=== PATIENT | female | born 1955 | race Caucasian/White ===

== ENCOUNTER → 2019-05-07 12:25 | Emergency (ER) | payer MEDICARE ==
[~2019-05-07 12:25] MED LIST: Dexamethasone IV* 4 MG/ML 1 ML (4 MG) IV SLOW PU ONE; Methocarbamol TAB* 500 MG PO ONE; Potassium Chlor TAB* 20 MEQ TAB.ER PO ONE
--- NOTE | 2019-05-07 12:43 | ED ---
Back Pain - HPI Summary HPI Summary: Patient is a 63 y/o F presenting to ED with complaints of back pain and urinary/ fecal incontinence. She states that Sx have been intermittent over the past few years but have exacerbated over the past few weeks. She endorses numbness and weakness of legs with difficulty of ambulation as well. Patient denies fevers and chills. Per triage, "Pt was seen by Dr. Killian and was told to come to the ED for emergent spinal surgery". Patient states she has never seen a neurosurgeon. No Hx of diabetes, patient endorses Hx of HLD and HTN. On triage, pain is rated 7/10, certain positions aggravate Sx. Home medications and allergies are reviewed. - History of Current Complaint Chief Complaint: EDBackInjuryPain Stated Complaint: MRI OF HER BACK PER PT Time Seen by Provider: 05/07/19 12:38 Hx Obtained From: Patient Onset/Duration: Lasting Weeks, Still Present Onset/Duration: Started Weeks Ago, Still Present Timing: Constant, Lasting Weeks Back Pain Location: Is Discrete @ - back Severity Currently: Severe Pain Intensity: 7 Pain Scale Used: 0-10 Numeric Aggravating Symptom(s): Other - position Alleviating Symptom(s): Nothing Associated Signs And Symptoms: Positive: Weakness - BLE, Numbness - BLE, Bladder Incontinence, Bowel Incontinence, Other - negative - chills. Negative: Fever - Allergies/Home Medications Allergies/Adverse Reactions: Allergies Allergy/AdvReac Type Severity Reaction Status Date / Time latex Allergy Rash Verified 05/07/19 12:33 Home Medications: Home Medications Aspirin EC TAB* [Ecotrin EC Low Dose 81 MG*] 81 mg PO DAILY 05/07/19 [History Confirmed 05/07/19] Atorvastatin* [Lipitor 20 MG*] 20 mg PO DAILY 05/07/19 [History Confirmed ] Bisoprolol TAB* [Zebeta TAB*] 5 mg PO DAILY 05/07/19 [History Confirmed 05/07/19 ] Calcium Carbonate/Vitamin D3 [Calcium 600 + Vit D Tablet] 1 tab PO DAILY [History Confirmed 05/07/19] Escitalopram * [Lexapro *] 40 mg PO DAILY 05/07/19 [History Confirmed 05/07/19] Lamotrigine XR (NF) [Lamictal XR (NF)] 200 mg PO BID 05/07/19 [History Confirmed 05/07/19] Meloxicam(NF) [Mobic(NF)] 7.5 mg PO BID 05/07/19 [History Confirmed 05/07/19] Multivitamins/Minerals TAB* [Theragran/minerals TAB*] 1 tab PO DAILY 05/07/19 [ History Confirmed 05/07/19] Spironolactone [Aldactone 50 MG-] 50 mg PO DAILY 05/07/19 [History Confirmed 11/13] amLODIPine TAB* [Norvasc 5 mg TAB*] 5 mg PO EVERY OTHER DAY 05/07/19 [History Confirmed 05/07/19] PMH/Surg Hx/FS Hx/Imm Hx Cardiovascular History: Reports: Hx Hypertension GI History: Reports: Hx Irritable Bowel Musculoskeletal History: Reports: Hx Arthritis - rheumatoid Sensory History: Reports: Hx Contacts or Glasses Opthamlomology History: Reports: Hx Contacts or Glasses Neurological History: Reports: Other Neuro Impairments/Disorders - had grand mal seizure in 2003 but none since - Surgical History Surgery Procedure, Year, and Place: tonsillectomy, hysterectomy,total right and left knee replacements,quadriceps tendon and achilles left leg in 2011 & 2012; Bilateral Wrist Surgery 2017 [facility] by Dr. Gutierrez ([place]arpal Tunnel and Gangl[place]) Infectious Disease History: No Infectious Disease History: Denies: Traveled Outside the [place] in Last 30 Days - Family History Known Family History: Positive: Cardiac Disease, Hypertension, Diabetes, Renal Disease - Social History Alcohol Use: None Substance Use Type: Reports: None Smoking Status (MU): Current Every Day Smoker Type: Cigarettes Amount Used/How Often: 2-5 cigarettes/day Have You Smoked in the Last Year: Yes Review of Systems Negative: Fever, Chills Positive: incontinence Musculoskeletal: Other - POSITIVE - BACK PAIN Positive: Weakness - BLE , Numbness - BLE All Other Systems Reviewed And Are Negative: Yes Physical Exam - Summary Physical Exam Summary: VITAL SIGNS: Reviewed. GENERAL: Patient is a well-developed and nourished female who is lying comfortable in the stretcher. Patient is not in any acute respiratory distress. Incontinent of urine and feces. Lumbar spine tenderness is noted. HEAD AND FACE: No signs of trauma. No ecchymosis, hematomas or skull depressions. No sinus tenderness. EYES: PERRLA, EOMI x 2, No injected conjunctiva, no nystagmus. EARS: Hearing grossly intact. Ear canals and tympanic membranes are within normal limits. MOUTH: Oropharynx within normal limits. NECK: Supple, trachea is midline, no adenopathy, no JVD, no carotid bruit, no c- spine tenderness, neck with full ROM. CHEST: Symmetric, no tenderness at palpation LUNGS: Clear to auscultation bilaterally. No wheezing or crackles. CVS: Regular rate and rhythm, S1 and S2 present, no murmurs or gallops appreciated. ABDOMEN: Soft, non-tender. No signs of distention. No rebound no guarding, and no masses palpated. Bowel sounds are normal. RECTAL EXAM: Done in presence of female nurse. Decreased sphincter tone is noted. EXTREMITIES: No edema, no cyanosis or clubbing. Hypo-reflexia, decreased sensation at legs. NEURO: Alert and oriented x 3. Speech is normal and follows commands. Hypo- reflexia, decreased sensation and weakness of legs. SKIN: Dry and warm. Triage Information Reviewed: Yes Vital Signs On Initial Exam: Initial Vitals Temp Pulse Resp BP Pulse Ox 96.4 F 112 16 137/95 94 05/07/19 12:29 05/07/19 12:29 05/07/19 12:29 05/07/19 12:29 05/07/19 12:29 Vital Signs Reviewed: Yes Diagnostics - Vital Signs Vital Signs Temp Pulse Resp BP Pulse Ox 05/07/19 12:29 96.4 F 112 16 137/95 94 - Laboratory Result Diagrams: 05/07/19 12:54 05/07/19 12:54 Lab Statement: Any lab studies that have been ordered have been reviewed, and results considered in the medical decision making process. 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 THIS IS A. EXAGGERATED AT MULTIPLE LEVELS DUE TO DIFFUSE DEGENERATIVE DISC DISEASE AND FACET. OSTEOARTHRITIS WITH CHANGES MOST PROMINENT AT THE L4-L5 LEVEL. AT THAT LEVEL THERE IS. MODERATE TO SEVERE SPINAL CANAL NARROWING. THERE IS ALSO NEURAL FORAMINAL NARROWING AT. MULTIPLE LEVELS NOTED. THIS REPORT WAS REVIEWED BY DR. AGUSTIN Re-Evaluation - Re-Evaluation First Eval Re-Evaluation Time: 18:45 Comment: I discussed the findings, test results and the plan with the patient and she agrees. And will be given a prescription for the patient for Medrol Dosepak and Robaxin. Patient is hemodynamically stable alert oriented 3. The patient was able to ambulate out of the emergency department. Back Pain Course/Dx - Course Assessment/Plan: Patient is a 63 y/o F presenting to ED with complaints of back pain and urinary/fecal incontinence. She states that Sx have been intermittent over the past few years but have exacerbated over the past few weeks. She endorses numbness and weakness of legs with difficulty of ambulation as well. Patient denies fevers and chills. Per triage, "Pt was seen by Dr. Killian and was told to come to the ED for emergent spinal surgery". Patient states she has never seen a neurosurgeon. No Hx of diabetes, patient endorses Hx of HLD and HTN. Past medical history significant for. Anxiety. Hypertension. CHF. Rheumatoid arthritis. Dyslipidemia. Chronic back pain. In the ED course the patient has remained stable. I did a rectal exam and she has decreased strength and tone, however she doesnt have any saddle anesthesia. The patient is not weak in the lower extremities. Patient was given Toradol, Robaxin and Decadron. 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 THIS IS an EXAGGERATED AT MULTIPLE LEVELS DUE TO DIFFUSE DEGENERATIVE DISC DISEASE AND FACET OSTEOARTHRITIS WITH CHANGES MOST PROMINENT AT THE L4-L5 LEVEL. AT THAT LEVEL THERE IS. MODERATE TO SEVERE SPINAL CANAL NARROWING. THERE IS ALSO NEURAL FORAMINAL NARROWING AT MULTIPLE LEVELS NOTED. At this point I discussed my physical exam, findings and test results with Dr. Clemons from neurosurgery and he recommends for the patient to be discharged and follow up as an outpatient. I discussed the findings, test results and the plan with the patient and she agrees. And will be given a prescription for the patient for Medrol Dosepak and Robaxin. Patient is hemodynamically stable alert oriented 3. The patient was able to ambulate out of the emergency department. - Diagnoses Provider Diagnoses: Back pain, DDD (degenerative disc disease) - Provider Notifications Discussed Care Of Patient With: Hernandez Clemons Time Discussed With Above Provider: 18:03 Instructed by Provider To: Other - 000 - Patient's case was discusse with Dr. Clemons, Dr. Clemons recommends for the patient to be discharged and follow up as an outpatient. Discharge - Sign-Out/Discharge Documenting (check all that apply): Patient Departure - discharge Patient Received Moderate/Deep Sedation with Procedure: No - Discharge Plan Condition: Stable Disposition: HOME Prescriptions: Methocarbamol TAB* [Robaxin 500 MG TAB*] 500 mg PO TID PRN #12 tab PRN Reason: Pain methylPREDNISolone [Medrol Dosepak 4 MG*] 0 mg PO .SEE MARY INSTRUCTION #1 mary Patient Education Materials: Back Pain (ED), Degenerative Disc Disease (ED) Referrals: Hernandez Clemons MD [Medical Doctor] - 3 Days Jerica Killian MD [Primary Care Provider] - 3 Days Additional Instructions: PLEASE RETURN TO ED FOR ANY CHANGING OR WORSENING SYMPTOMS. FOLLOW UP WITH YOUR PRIMARY CARE PHYSICIAN AND NEUROSURGERY WITHIN THREE DAYS. - Billing Disposition and Condition Condition: STABLE Disposition: Home - Attestation Statements Document Initiated by Scribe: Yes Documenting Scribe: CAR MENDEZ Provider For Whom Scribe is Documenting (Include Credential): FELICITY AGUSTIN MD Scribe Attestation: CAR Crocker, scribed for FELICITY AGUSTIN MD on 05/07/19 at 2145. Scribe Documentation Reviewed: Yes Provider Attestation: The documentation as recorded by the CAR ragsdale accurately reflects the service I personally performed and the decisions made by FELICITY angel MD Status of Scribe Document: Viewed
[2019-05-07 13:05] LABS: ABS Basophils 0.1 10^3/ul (0-0.2); ABS Eosinophils 0.2 10^3/ul (0-0.6); ABS Lymphocytes 3.1 10^3/ul (1.0-4.8); ABS Monocytes 0.7 10^3/ul (0-0.8); ABS Neutrophils 6.6 10^3/ul (1.5-7.7); Hematocrit 38 % (35-47); Lymphocyte % 29.2 %; Mean Corpuscular HGB Conc 34 g/dL (31-36); Mean Corpuscular Hemoglobin 30 pg (27-31); Mean Corpuscular Volume 88 fL (80-97); Mean Platelet Volume 6.8 fL (7.4-10.4); Nucleated Red Blood Cells % 0.1; Platelet Count 236 10^3/uL (150-450); Red Blood Count 4.32 10^6 /uL (3.70-4.87); Red Cell Distribution Width 14 % (10-15); White Blood Count 10.7 10^3/uL (3.5-10.8)
[2019-05-07 13:13] LABS: Activated Partial Thrombo Time 33.2 seconds (26.0-38.0); INR 0.95 (0.82-1.09)
[2019-05-07 13:22] LABS: Albumin/Globulin Ratio 1.5 (1-3); BUN/Creatinine Ratio 19.7 (8-20); Calcium 9.4 mg/dL (8.6-10.3); EGFR African American 110.2 (>60); Globulin 2.7 g/dL (2-4); Total Bilirubin 0.4 mg/dL (0.2-1.0); Total Protein 6.7 g/dL (6.4-8.9)
[2019-05-07 18:58] VITALS: BP 150/90
== END | disposition home or self-care (01) ==
LOC: ED 12:25
DX: M54.9 Dorsalgia, unspecified (principal); M51.36 Other intervertebral disc degeneration, lumbar region; I10 Essential (primary) hypertension; F17.210 Nicotine dependence, cigarettes, uncomplicated; Z79.82 Long term (current) use of aspirin; Z79.899 Other long term (current) drug therapy; Z91.040 Latex allergy status
CPT/HCPCS: 36415; 72148; 80053; 85025; 85610; 85730; 96374; 99284; A9270-GY; J1100